=== PATIENT | male | born 1955 | race Caucasian/White ===

== ENCOUNTER 2016-06-23 16:10 | Inpatient (IN) | payer MEDICAID ==
[~2016-06-23] VITALS: Ht 175.3 cm; Wt 98.8 kg
[2016-06-23 17:23] LABS: Basophils # (auto) 0 uL; Basophils % (auto) 0.4 % (0.0-2.0); Eosinophils # (auto) 0.1 uL; Eosinophils % (auto) 0.7 % (0.0-7.0); Hematocrit 44.2 % (41.0-53.0); Hemoglobin 15.2 g/dL (13.5-17.5); Lymphocytes % (auto) 18.6 % (10.0-50.0); Mean Corpuscular Hemoglobin 31.9 pg (28.0-32.0); Mean Corpuscular Hgb Conc. 34.3 g/dL (32.0-36.0); Mean Corpuscular Volume 92.9 fL (80.0-100.0); Mean Platelet Volume 9.4 fL (7.4-10.4); Monocytes # (auto) 0.9 uL; Monocytes % (auto) 8.3 % (0.0-12.0); Neutrophils # (auto) 7.8 uL; Platelet Count (auto) 178 10^3/uL (140-450); Red Cell Distribution Width 13.2 % (11.6-16.0); White Blood Cell 10.8 10^3/uL (4.4-10.8)
[2016-06-23 17:26] LABS: Albumin 4.3 g/dL (3.4-5.0); Alkaline Phosphatase 133 U/L (45-117); Anion Gap 12 (5-15); Aspartate Aminotransferase 18 U/L (15-37); BUN/Creatinine Ratio 11.8; Bilirubin, Total 0.9 mg/dL (0.2-1.0); Blood Urea Nitrogen 12 mg/dL (7-18); Calcium 8.9 mg/dL (8.5-10.1); Carbon Dioxide 23 mmol/L (21-32); Chloride 105 mmol/L (98-107); GFR African American 95 mL/min; GFR Non-African American 79 mL/min; Glucose 303 mg/dL (74-106); Potassium 3.8 mmol/L (3.5-5.1); Sodium 140 mmol/L (136-145); Total Protein 8.4 g/dL (6.4-8.2)
[2016-06-23] MEDS ORDERED: PANTOPRAZOLE SODIUM 40 MG/10 ML VIAL IV STA (19:34)
[2016-06-23] MEDS ORDERED: SODIUM CHLORIDE 0.9% 1,000 ML IVB ONE (19:34)
[2016-06-23] MEDS ORDERED: HYDROmorphone HCL 2 MG/ML VL IV ONE (19:45)
[2016-06-23] MEDS ORDERED: ONDANSETRON HCL 4 MG/2 ML VIAL IV ONE (19:45)
[2016-06-23 19:59] LABS: Magnesium 2.2 mg/dL (1.6-2.6)
[2016-06-23 21:57] LABS: Urine Bilirubin Negative (Negative); Urine Blood 1+ /uL (Negative); Urine Color Yellow (Yellow); Urine Glucose 4+ mg/dL (Normal); Urine Ketone 1+ (Negative); Urine Mucus FEW (None Seen); Urine Nitrite Negative (Negative); Urine RBC 2 /hpf (0 - 3); Urine Urobilinogen Normal (Negative); Urine pH 5.5 (5.0-8.0)
[2016-06-23] MEDS ORDERED: SODIUM CHLORIDE 0.9% 1,000 ML IV SCH (22:35)
[2016-06-23] MEDS ORDERED: TEMAZEPAM 15 MG CAP PO PRN (22:45)
[2016-06-23] MEDS ORDERED: ONDANSETRON HCL 4 MG/2 ML VIAL IV PRN (22:45)
[2016-06-23] MEDS ORDERED: ACETAMINOPHEN 325 MG TAB PO PRN (22:45)
[2016-06-23] MEDS ORDERED: HYDROcodone-ACET 5/325MG TAB PO PRN (22:45)
[2016-06-23] MEDS ORDERED: cefTRIAXone 1GM/50ML D5W 50 ML IV ONE (22:45)
[2016-06-23 23:21] LABS: Calcium 8.3 mg/dL (8.5-10.1); Potassium 3.8 mmol/L (3.5-5.1)
[2016-06-23 23:24] LABS: BUN/Creatinine Ratio 13.7
[2016-06-23] MEDS: KETOROLAC TROMETH 30 MG/ML 1ML VIAL IV PRN (23:41)
[2016-06-24] VITALS (7 sets, daily range): BP systolic 130–148; BP diastolic 77–87
[2016-06-24] MEDS: KETOROLAC TROMETH 30 MG/ML 1ML VIAL IV PRN ×3 (06:28→20:14)
[2016-06-24 07:14] LABS: Basophils # (auto) 0 uL; Basophils % (auto) 0.4 % (0.0-2.0); Eosinophils # (auto) 0.1 uL; Eosinophils % (auto) 1.1 % (0.0-7.0); Hematocrit 38.7 % (41.0-53.0); Hemoglobin 13.2 g/dL (13.5-17.5); Lymphocytes # (auto) 1.9 uL; Lymphocytes % (auto) 19.8 % (10.0-50.0); Mean Corpuscular Hemoglobin 31.3 pg (28.0-32.0); Mean Corpuscular Hgb Conc. 34.1 g/dL (32.0-36.0); Mean Corpuscular Volume 91.8 fL (80.0-100.0); Mean Platelet Volume 9.6 fL (7.4-10.4); Monocytes # (auto) 1.1 uL; Monocytes % (auto) 11.4 % (0.0-12.0); Neutrophils # (auto) 6.4 uL; Neutrophils % (auto) 67.3 % (37.0-80.0); Platelet Count (auto) 136 10^3/uL (140-450); Red Cell Distribution Width 13.2 % (11.6-16.0); White Blood Cell 9.5 10^3/uL (4.4-10.8)
[2016-06-24] MEDS ORDERED: cefTRIAXone 1GM/50ML D5W 50 ML IV SCH (09:00)
[2016-06-24] MEDS ORDERED: PANTOPRAZOLE SODIUM 40 MG/10 ML VIAL IV SCH (10:00)
[2016-06-24] MEDS ORDERED: ENOXAPARIN SOD 40 MG/0.4 ML SYRINGE SC SCH (10:00)
[2016-06-24] MEDS: SODIUM CHLORIDE 0.9% 1,000 ML IV SCH ×2 (14:19→23:48)
[2016-06-24] MEDS ORDERED: OMEP20CA5 PO (14:28)
[2016-06-24] MEDS ORDERED: IBUP600T27 PO (14:28)
[2016-06-25] MEDS: KETOROLAC TROMETH 30 MG/ML 1ML VIAL IV PRN (04:39)
[2016-06-25 04:45] VITALS: BP 153/87
[2016-06-25 07:18] LABS: Albumin 3.1 g/dL (3.4-5.0); BUN/Creatinine Ratio 17.5; Bilirubin, Total 0.8 mg/dL (0.2-1.0); Calcium 8.3 mg/dL (8.5-10.1); Potassium 3.4 mmol/L (3.5-5.1); Total Protein 6.8 g/dL (6.4-8.2)
[2016-06-25 08:28] VITALS: BP 142/82
[2016-06-25 09:00] VITALS: BP 142/82
[2016-06-25 09:20] VITALS: BP 142/82
== END 2016-06-25 10:01 | disposition home or self-care (01) | DRG 282 ==
LOC: ER 16:13 → OVERFLOW 16:14 → CENTRAL 23:27
PROVIDERS: ADMIT Nurse Practitioner; ATTEND Hospitalist
DX: K85.20 Alcohol induced acute pancreatitis without necrosis or infection (principal); K73.9 Chronic hepatitis, unspecified; R73.9 Hyperglycemia, unspecified; F10.20 Alcohol dependence, uncomplicated; F15.90 Other stimulant use, unspecified, uncomplicated; F17.210 Nicotine dependence, cigarettes, uncomplicated; Y90.0 Blood alcohol level of less than 20 mg/100 ml; Z90.49 Acquired absence of other specified parts of digestive tract; Z80.8 Family history of malignant neoplasm of other organs or systems
CPT/HCPCS: 36415; 71020; 74176; 80048; 80053; 80061; 80307; 81001; 82150; 83036; 83690; 83735; 84484; 85025; 93005; 94761; 96365; 96375; C9113; J0696; J1885; J2405

== ENCOUNTER 2019-03-16 11:57 | Inpatient (IN) | payer MEDICAID, MEDICARE, OTHER ==
[~2019-03-16] VITALS: Ht 180.3 cm; Wt 85.7 kg
[~2019-03-16 11:57] MED LIST: IBUP600T27 PO; OMEP20CA74 PO
[2019-03-16] MEDS ORDERED: IPRATROPIUM BROM 0.5 MG/2.5ML INH SOL HHN ONE (12:15)
[2019-03-16] MEDS ORDERED: methylPREDNISolone SOD SUCC 125 MG/2 ML VL IV ONE (12:15)
[2019-03-16] MEDS ORDERED: ALBUTEROL SULF 2.5 MG/0.5ML(0.5%) NEB SOLN HHN ONE (12:15)
[2019-03-16 13:38] LABS: Basophils # (auto) 0 uL; Basophils % (auto) 0.3 % (0.0-2.0); Eosinophils # (auto) 0 uL; Eosinophils % (auto) 0.6 % (0.0-7.0); Hematocrit 38.8 % (41.0-53.0); Hemoglobin 13.5 g/dL (13.5-17.5); Lymphocytes # (auto) 2.3 uL; Lymphocytes % (auto) 30.9 % (10.0-50.0); Mean Corpuscular Hemoglobin 31.6 pg (28.0-32.0); Mean Corpuscular Hgb Conc. 34.8 g/dL (32.0-36.0); Mean Corpuscular Volume 90.6 fL (80.0-100.0); Monocytes # (auto) 0.9 uL; Monocytes % (auto) 11.8 % (0.0-12.0); Neutrophils # (auto) 4.3 uL; Neutrophils % (auto) 56.4 % (37.0-80.0); Nucleated Red Blood Cells % 0.1 %; Platelet Count (auto) 159 10^3/uL (140-450); Red Blood Cells 4.28 10^6/uL (4.5-5.90); Red Cell Distribution Width 12.9 % (11.8-14.3); White Blood Cell 7.5 10^3/uL (4.4-10.8)
[2019-03-16 13:52] LABS: Lactic Acid w/Reflex 3.8 mmol/L (0.4-2.0)
[2019-03-16 13:55] LABS: Albumin 3.5 g/dL (3.4-5.0); Anion Gap 10 (5-15); Blood Urea Nitrogen 12 mg/dL (7-18); Carbon Dioxide 24 mmol/L (21-32); Chloride 98 mmol/L (98-107); Glucose 372 mg/dL (74-106); Magnesium 2.2 mg/dL (1.6-2.6); Potassium 3.2 mmol/L (3.5-5.1); Sodium 132 mmol/L (136-145)
[2019-03-16 14:01] LABS: Alanine Aminotransferase 41 U/L (16-61); Alkaline Phosphatase 106 U/L (45-117); Aspartate Aminotransferase 30 U/L (15-37); BUN/Creatinine Ratio 12.1; Bilirubin, Total 0.8 mg/dL (0.2-1.0); GFR African American 98 mL/min; GFR Non-African American 81 mL/min; Total Protein 7.6 g/dL (6.4-8.2)
[2019-03-16] MEDS ORDERED: MORPHINE SULF INJ 2 MG/ML SYRINGE 1ML IV PRN (15:15)
[2019-03-16] MEDS ORDERED: PROMETHAZINE HCL 25 MG/ML 1ML IV PRN (15:15)
[2019-03-16] MEDS ORDERED: TEMAZEPAM 15 MG CAP PO PRN (15:15)
[2019-03-16] MEDS ORDERED: ALBUTEROL SULF 2.5 MG/0.5ML(0.5%) NEB SOLN NEB PRN (15:15)
[2019-03-16] MEDS ORDERED: ACETAMINOPHEN 500 MG TAB PO PRN (15:15)
[2019-03-16] MEDS ORDERED: LACTULOSE 20Gm/30ML SOLN PO PRN ×2 (15:15)
[2019-03-16] MEDS ORDERED: traMADol HCL 50 MG TAB PO PRN (15:15)
[2019-03-16] MEDS ORDERED: DEXTROSE (50%) 50ML SYRG IV PRN (15:15)
[2019-03-16] MEDS ORDERED: NITROGLYCERIN 0.4 MG SL TAB SL PRN (15:15)
[2019-03-16] MEDS ORDERED: OSELTAMIVIR 75 MG CAP PO ONE (15:15)
[2019-03-16] MEDS: ACCU-CHEK COMFORT CURVE STRIP VI SCH ×2 (16:00→20:00)
[2019-03-16 16:18] LABS: CRP High Sensitivity 2.49 mg/dL (< 0.3)
[2019-03-16 17:00] VITALS: BP 123/79
--- NOTE | 2019-03-16 17:00 | NUR ---
Telemetry admit from ER KATIE HAN admitted to Telemetry unit NO SBAR received. Patient oriented to FARHAT PATELRN primary RN, unit, room, bed, and unit policies regarding patient care and visiting hours. Patient now on continuous telemetry monitoring, tele box #[id number] and telemetry reading on arrival to unit is NSR at 91bpm. Patient placed on bedside oxygen @ 2l n/c, weighed by bedscale and encouraged to call if they need something. Bed in lowest/locked position, bed rails up x2, call light within reach. All questions and concerns addressed, patient verbalized understanding.
--- NOTE | 2019-03-16 17:10 | NUR ---
EMAR PER PATIENT EMAR 1500 AND 1600 MEDS NOT ADMINISTERED FROM ER. PATIENT NOT ON UNIT UNTIL APPROXIMATELY 1700. WILL MEDICATE PATIENT PER MD ORDERS NOW. WILL CONTINUE TO MONITOR Q1H AND PRN.
[2019-03-16] MEDS: DOXYCYCLINE 100MG/250ML 250 ML IV SCH (18:17)
--- NOTE | 2019-03-16 18:20 | NUR ---
ACCU CHECK BLOOD SUGAR 431 RECHECK BLOOD SUGAR 435 WILL MEDICATE PER ORDER AND NOTFIY MD
--- NOTE | 2019-03-16 18:30 | NUR ---
PAGED HOSPITALIST PAGED HOSPITALIST RE: PATIENT BLOOD SUGARS [phone]. AWAITING RETURN PHONE CALL
[2019-03-16] MEDS: SOD CHL 0.9%/ KCL 40MEQ 1,000 ML IV SCH ×2 (18:31→23:35)
[2019-03-16] MEDS: InsuLIN REG 1unit/0.01ml Soln (100units/ml) SC SCH ×2 (18:42→20:42)
[2019-03-16] MEDS: IPRATROPIUM BROM 0.5 MG/2.5ML INH SOL NEB SCH (18:43)
[2019-03-16] MEDS: ALBUTEROL SULF 2.5 MG/0.5ML(0.5%) NEB SOLN NEB SCH (18:43)
--- NOTE | 2019-03-16 18:58 | NUR ---
INFLUENZA INFLUENZA SWAB SENT PER GA ORDER
--- NOTE | 2019-03-16 19:30 | NUR ---
Opening Shift Note Assumed care of patient, awake and alert. No S/S of distress/SOB or pain. Awaiting on return phone call from MD per day RN for high blood sugar. Will follow up. IV to DIONTE patent and infusing. Skin clear. Instructed on POC and to call for assist PRN, will continue to monitor for changes Q1hr and PRN.
--- NOTE | 2019-03-16 20:30 | NUR ---
Blood sugar was 568. Insulin given per orders. Paged Dr. Mcnair. New orders carried out for labs and to update with results to follow. Patient is asymptomatic at this time. No distress noted.
--- NOTE | 2019-03-16 21:00 | NUR ---
IV to DIONTE was accidentally pulled out per patient. Patient is a very hard stick, will start new IV as soon as able. No bleeding at IV site noted.
[2019-03-16 21:45] LABS: Albumin 3.3 g/dL (3.4-5.0); BUN/Creatinine Ratio 15.7; Calcium 8.8 mg/dL (8.5-10.1); Potassium 3.7 mmol/L (3.5-5.1)
[2019-03-16 21:49] LABS: Bilirubin, Total 0.7 mg/dL (0.2-1.0); Total Protein 7.5 g/dL (6.4-8.2)
[2019-03-16 22:00] VITALS: BP 108/71
[2019-03-16] MEDS ORDERED: OSELTAMIVIR 75 MG CAP PO SCH (22:00)
[2019-03-16] MEDS ORDERED: InsuLIN REG 1unit/0.01ml Soln (100units/ml) IV ONE (22:30)
--- NOTE | 2019-03-16 23:00 | NUR ---
Spoke with Dr. Mcnair. regarding blood sugar now at 450 per lab draw. One time order of 15 units regular insulin carried out per orders. Accu check q4 hours. Anion gap @ 10. Patient also received solu medrol as well in ER. Continuing to monitor
[2019-03-16] MEDS: ATORVASTATIN 20 MG TAB PO SCH (23:01)
[2019-03-16] MEDS: METOPROLOL TARTRATE 25 MG TAB PO SCH (23:02)
--- NOTE | 2019-03-16 23:22 | NUR ---
New IV started to center of abdomen, 24 gauge. Tolerated well.
[2019-03-17] MEDS: IPRATROPIUM BROM 0.5 MG/2.5ML INH SOL NEB SCH ×4 (00:35→18:49)
[2019-03-17] MEDS: ALBUTEROL SULF 2.5 MG/0.5ML(0.5%) NEB SOLN NEB SCH ×4 (00:36→18:49)
[2019-03-17] MEDS: InsuLIN REG 1unit/0.01ml Soln (100units/ml) SC SCH ×5 (04:00→17:39)
[2019-03-17] MEDS: DOXYCYCLINE 100MG/250ML 250 ML IV SCH ×2 (04:00→16:38)
[2019-03-17] MEDS: ACCU-CHEK COMFORT CURVE STRIP VI SCH ×6 (04:17→22:34)
--- NOTE | 2019-03-17 04:30 | NUR ---
Blood sugar was 214. Held insulin due to patient feeling sweaty and clammy. Also felt like he needed a snack. 30 units of insulin given by me throughout night and will continue to monitor. snack given as well.
[2019-03-17 05:00] VITALS: BP 130/77
[2019-03-17 06:10] LABS: Potassium 3.9 mmol/L (3.5-5.1)
[2019-03-17 06:24] LABS: Albumin 3.3 g/dL (3.4-5.0); BUN/Creatinine Ratio 21.3; Bilirubin, Total 0.8 mg/dL (0.2-1.0); Calcium 8.9 mg/dL (8.5-10.1); Total Protein 7.1 g/dL (6.4-8.2)
[2019-03-17 08:00] VITALS: BP 130/75
[2019-03-17 09:02] VITALS: BP 136/77
[2019-03-17] MEDS: ASPirin 81 mg TAB PO SCH (10:47)
[2019-03-17] MEDS: METOPROLOL TARTRATE 25 MG TAB PO SCH ×2 (10:47→22:37)
[2019-03-17] MEDS: ENOXAPARIN SOD 40 MG/0.4 ML SYRINGE SC SCH (10:47)
[2019-03-17] MEDS: NITROGLYCERIN 0.2MG/HR TOPICAL PATCH TD SCH (10:48)
[2019-03-17 13:21] VITALS: BP 128/76
[2019-03-17 16:58] VITALS: BP 126/76
--- NOTE | 2019-03-17 19:40 | NUR ---
received pt from day rn poc reviewed
--- NOTE | 2019-03-17 20:00 | NUR ---
pt resting with eyes closed resp even and unlabored, denies pain or discomfort, call light within reach
[2019-03-17 21:00] VITALS: BP 113/73
[2019-03-17] MEDS ORDERED: InsuLIN REG 1unit/0.01ml Soln (100units/ml) SC SCH (22:00)
[2019-03-17] MEDS: ATORVASTATIN 20 MG TAB PO SCH (22:37)
--- NOTE | 2019-03-18 | NUR ---
awoke denies discomfort, all needs met
[2019-03-18] MEDS: ALBUTEROL SULF 2.5 MG/0.5ML(0.5%) NEB SOLN NEB SCH ×4 (00:14→12:07)
[2019-03-18] MEDS: IPRATROPIUM BROM 0.5 MG/2.5ML INH SOL NEB SCH ×4 (00:14→12:07)
--- NOTE | 2019-03-18 02:00 | NUR ---
resting with eyes closed call light within reach. resp even and unlabored
[2019-03-18 04:30] VITALS: BP 129/74
[2019-03-18] MEDS: DOXYCYCLINE 100MG/250ML 250 ML IV SCH (05:11)
[2019-03-18] MEDS: InsuLIN REG 1unit/0.01ml Soln (100units/ml) SC SCH ×2 (06:20→12:11)
[2019-03-18] MEDS: ACCU-CHEK COMFORT CURVE STRIP VI SCH ×2 (06:20→11:30)
--- NOTE | 2019-03-18 06:45 | NUR ---
awoke am care given denies pain or discomfort, will continue to monitor
--- NOTE | 2019-03-18 07:05 | NUR ---
report given to am nurse poc reviewed
[2019-03-18 08:00] VITALS: BP 113/73
[2019-03-18 09:11] VITALS: BP 135/75
[2019-03-18] MEDS: ASPirin 81 mg TAB PO SCH (11:44)
[2019-03-18] MEDS: METOPROLOL TARTRATE 25 MG TAB PO SCH (11:45)
[2019-03-18] MEDS: ENOXAPARIN SOD 40 MG/0.4 ML SYRINGE SC SCH (11:46)
[2019-03-18] MEDS: NITROGLYCERIN 0.2MG/HR TOPICAL PATCH TD SCH (11:46)
[2019-03-18 13:50] VITALS: BP 135/75
== END 2019-03-18 17:30 | disposition home or self-care (01) | DRG 202 ==
LOC: ER 11:57 → TELE 11:58 → TELE-WESTW 16:52
PROVIDERS: ADMIT Internal Medicine; ATTEND Internal Medicine
DX: J20.9 Acute bronchitis, unspecified (principal); J44.1 Chronic obstructive pulmonary disease with (acute) exacerbation; J44.0 Chronic obstructive pulmonary disease with (acute) lower respiratory infection; E11.65 Type 2 diabetes mellitus with hyperglycemia; E78.5 Hyperlipidemia, unspecified; F17.210 Nicotine dependence, cigarettes, uncomplicated; B19.20 Unspecified viral hepatitis C without hepatic coma; I10 Essential (primary) hypertension; Z80.3 Family history of malignant neoplasm of breast; Z82.0 Family history of epilepsy and other diseases of the nervous system; Z89.512 Acquired absence of left leg below knee; Z90.49 Acquired absence of other specified parts of digestive tract; Z79.899 Other long term (current) drug therapy
CPT/HCPCS: 36415; 71046; 80053; 80061; 82550; 82962; 83036; 83605; 83735; 83880; 84484; 85025; 85379; 85652; 86141; 87040; 87804; 93306; 94640; 96374; 99291; G0378; J1815; J3490

== ENCOUNTER 2019-05-04 19:23 | Inpatient (IN) | payer MEDICARE ==
[~2019-05-04] VITALS: Ht 170.2 cm; Wt 88.9 kg
[2019-05-04 20:29] LABS: INR 0.99 (0.9-1.15); Partial Thromboplastin Time 20.2 sec (23.64-32.05)
[2019-05-04 20:39] LABS: Albumin 4.4 g/dL (3.4-5.0); Calcium 9.3 mg/dL (8.5-10.1)
[2019-05-04 20:41] LABS: Urine Bacteria NONE SEEN /hpf (None Seen); Urine Blood Negative /uL (Negative); Urine Hyaline Cast FEW /lpf (0 - 2); Urine Mucus FEW (None Seen); Urine WBC 1 /hpf (0 - 3)
[2019-05-04 20:43] LABS: BUN/Creatinine Ratio 11.8; Bilirubin, Total 0.7 mg/dL (0.2-1.0); Total Protein 8.1 g/dL (6.4-8.2)
[2019-05-04 20:49] LABS: Basophils # (auto) 0.1 10 ^3/uL (0-0.2); Basophils % (auto) 0.7 % (0.0-2.0); Eosinophils # (auto) 0.1 10 ^3/uL (0-0.8); Eosinophils % (auto) 1.5 % (0.0-7.0); Hematocrit 45.4 % (41.0-53.0); Hemoglobin 15.6 g/dL (13.5-17.5); Lymphocytes % (auto) 36.5 % (10.0-50.0); Mean Corpuscular Hemoglobin 31.7 pg (28.0-32.0); Mean Corpuscular Hgb Conc. 34.4 g/dL (32.0-36.0); Mean Corpuscular Volume 92.2 fL (80.0-100.0); Monocytes # (auto) 0.9 10 ^3/uL (0-1.3); Monocytes % (auto) 10.6 % (0.0-12.0); Neutrophils # (auto) 4.2 10 ^3/uL (1.6-8.6); Neutrophils % (auto) 50.7 % (37.0-80.0); Nucleated Red Blood Cells % 0.5 %; Platelet Count (auto) 158 10^3/uL (140-450); Red Blood Cells 4.93 10^6/uL (4.5-5.90); Red Cell Distribution Width 13.8 % (11.8-14.3); White Blood Cell 8.3 10^3/uL (4.4-10.8)
[2019-05-05] VITALS (7 sets, daily range): BP systolic 115–139; BP diastolic 46–88
[2019-05-05] MEDS ORDERED: ONDANSETRON HCL 4 MG/2 ML VIAL IV PRN (01:00)
[2019-05-05] MEDS ORDERED: DOCUSATE SOD 100 MG CAP PO PRN (01:00)
[2019-05-05] MEDS ORDERED: MORPHINE SULFATE 4 MG/ML SYR/VIAL IV PRN (01:00)
[2019-05-05] MEDS ORDERED: ACETAMINOPHEN 325 MG TAB PO PRN (01:00)
[2019-05-05] MEDS ORDERED: DEXTROSE (50%) 50ML SYRG IV PRN (01:00)
[2019-05-05] MEDS ORDERED: IPRATROPIUM BROM 0.5 MG/2.5ML INH SOL NEB PRN (01:00)
[2019-05-05] MEDS: HYDROcodone-ACET 5/325MG TAB PO PRN ×2 (03:15→10:35)
[2019-05-05] MEDS: ACCU-CHEK COMFORT CURVE STRIP VI SCH ×5 (03:39→20:49)
[2019-05-05] MEDS: SODIUM CHLORIDE 0.9% 1,000 ML IV SCH ×3 (03:40→20:49)
[2019-05-05] MEDS: InsuLIN REG 1unit/0.01ml Soln (100units/ml) SC SCH ×5 (03:48→20:48)
[2019-05-05] MEDS: methylPREDNISolone SOD SUCC 125 MG/2 ML VL IV SCH (10:25)
[2019-05-05] MEDS: METOPROLOL TARTRATE 25 MG TAB PO SCH ×2 (10:26→10:34)
[2019-05-05] MEDS: LOSARTAN POTASSIUM 50 MG TAB PO SCH ×2 (10:26→10:34)
[2019-05-05] MEDS: PANTOPRAZOLE 40 MG TAB PO SCH ×2 (10:26→20:50)
[2019-05-05] MEDS: ATORVASTATIN 20 MG TAB PO SCH (10:27)
[2019-05-05 12:32] LABS: Basophils # (auto) 0 10 ^3/uL (0-0.2); Basophils % (auto) 0.6 % (0.0-2.0); Eosinophils # (auto) 0.1 10 ^3/uL (0-0.8); Hematocrit 38.2 % (41.0-53.0); Hemoglobin 13.5 g/dL (13.5-17.5); Lymphocytes # (auto) 1.5 10 ^3/uL (0.4-5.4); Lymphocytes % (auto) 31.7 % (10.0-50.0); Mean Corpuscular Hemoglobin 31.6 pg (28.0-32.0); Mean Corpuscular Hgb Conc. 35.2 g/dL (32.0-36.0); Mean Corpuscular Volume 89.6 fL (80.0-100.0); Monocytes # (auto) 0.4 10 ^3/uL (0-1.3); Monocytes % (auto) 7.3 % (0.0-12.0); Neutrophils # (auto) 2.8 10 ^3/uL (1.6-8.6); Neutrophils % (auto) 58.4 % (37.0-80.0); Nucleated Red Blood Cells % 0.2 %; Platelet Count (auto) 132 10^3/uL (140-450); Red Blood Cells 4.26 10^6/uL (4.5-5.90); Red Cell Distribution Width 13.7 % (11.8-14.3); White Blood Cell 4.9 10^3/uL (4.4-10.8)
[2019-05-05 12:48] LABS: Calcium 8.5 mg/dL (8.5-10.1); Potassium 3.3 mmol/L (3.5-5.1)
[2019-05-06] MEDS: InsuLIN REG 1unit/0.01ml Soln (100units/ml) SC SCH ×7 (00:01→23:48)
[2019-05-06] MEDS: ACCU-CHEK COMFORT CURVE STRIP VI SCH ×7 (04:44→23:48)
[2019-05-06 05:37] VITALS: BP 115/68
[2019-05-06] MEDS: SODIUM CHLORIDE 0.9% 1,000 ML IV SCH ×2 (05:41→16:29)
[2019-05-06 08:00] VITALS: BP 124/76
[2019-05-06 09:00] VITALS: BP 121/76
[2019-05-06] MEDS: METOPROLOL TARTRATE 25 MG TAB PO SCH ×2 (10:00→21:06)
[2019-05-06] MEDS: methylPREDNISolone SOD SUCC 125 MG/2 ML VL IV SCH (10:16)
[2019-05-06] MEDS: PANTOPRAZOLE 40 MG TAB PO SCH ×2 (10:16→21:06)
[2019-05-06] MEDS: ATORVASTATIN 20 MG TAB PO SCH (10:16)
[2019-05-06] MEDS ORDERED: GOLYTELY 4L KIT PO ONE (12:00)
[2019-05-06 13:00] VITALS: BP 133/74
[2019-05-06 17:00] VITALS: BP 114/68
[2019-05-06 22:00] VITALS: BP 134/78
[2019-05-07] MEDS: SODIUM CHLORIDE 0.9% 1,000 ML IV SCH ×3 (02:08→22:49)
[2019-05-07] MEDS: InsuLIN REG 1unit/0.01ml Soln (100units/ml) SC SCH ×5 (04:00→20:00)
[2019-05-07] MEDS: ACCU-CHEK COMFORT CURVE STRIP VI SCH ×5 (04:10→20:00)
[2019-05-07 05:00] VITALS: BP 128/72
[2019-05-07 08:00] VITALS: BP 136/70
[2019-05-07 08:28] VITALS: BP 136/70
[2019-05-07] MEDS: methylPREDNISolone SOD SUCC 125 MG/2 ML VL IV SCH (10:00)
[2019-05-07] MEDS: LOSARTAN POTASSIUM 50 MG TAB PO SCH (10:00)
[2019-05-07] MEDS: METOPROLOL TARTRATE 25 MG TAB PO SCH ×2 (10:00→20:05)
[2019-05-07] MEDS: ATORVASTATIN 20 MG TAB PO SCH (10:00)
[2019-05-07] MEDS ORDERED: fentaNYL CITRATE 100 MCG/2 ML VL ONE (12:09)
[2019-05-07] MEDS ORDERED: PROPOFOL 10 MG/ML 20 ML IV ONE (12:09)
[2019-05-07] MEDS ORDERED: MIDAZOLAM HCL 1MG/1ML-2 ML VIAL ONE (12:10)
[2019-05-07] MEDS ORDERED: ONDANSETRON HCL 4 MG/2 ML VIAL IV PRN (12:45)
[2019-05-07] MEDS ORDERED: hydrALAZINE HCL 20 MG/ML VL IV PRN (12:45)
[2019-05-07] MEDS ORDERED: ePHEDrine SULFATE 50 MG/ML AMP IV PRN (12:45)
[2019-05-07] MEDS ORDERED: fentaNYL CITRATE 100 MCG/2 ML VL IV PRN (12:45)
[2019-05-07 17:01] VITALS: BP 133/70
[2019-05-07] MEDS: levoFLOXacin 500 MG TAB PO SCH (17:32)
[2019-05-07 22:00] VITALS: BP 126/70
[2019-05-08] MEDS: ACCU-CHEK COMFORT CURVE STRIP VI SCH ×4 (00:44→13:16)
[2019-05-08] MEDS: SODIUM CHLORIDE 0.9% 1,000 ML IV SCH (01:34)
[2019-05-08 02:00] VITALS: BP 124/47
[2019-05-08] MEDS: InsuLIN REG 1unit/0.01ml Soln (100units/ml) SC SCH ×4 (04:00→13:16)
[2019-05-08 05:00] VITALS: BP 150/80
[2019-05-08 08:00] VITALS: BP 137/74
[2019-05-08] MEDS: methylPREDNISolone SOD SUCC 125 MG/2 ML VL IV SCH (09:42)
[2019-05-08] MEDS: levoFLOXacin 500 MG TAB PO SCH (09:42)
[2019-05-08] MEDS: ATORVASTATIN 20 MG TAB PO SCH (09:42)
[2019-05-08] MEDS: LOSARTAN POTASSIUM 50 MG TAB PO SCH (09:44)
[2019-05-08] MEDS: METOPROLOL TARTRATE 25 MG TAB PO SCH (09:44)
[2019-05-08 12:00] VITALS: BP 177/81
[2019-05-08 15:18] VITALS: BP 144/77
== END 2019-05-08 15:52 | disposition home or self-care (01) | DRG 394 ==
LOC: ER 19:23 → OVERFLOW 19:24 → WEST WING 05-05 02:15
PROVIDERS: ADMIT Hospitalist; ATTEND Family Medicine
PROC: 0DB68ZX Excision of Stomach, Via Natural or Artificial Opening Endoscopic, Diagnostic (ICD-10-PCS; principal; 2019-05-07 12:14)
PROC: 0DBN8ZZ Excision of Sigmoid Colon, Via Natural or Artificial Opening Endoscopic (ICD-10-PCS; 2019-05-07 12:14)
DX: K55.9 Vascular disorder of intestine, unspecified (principal); K57.92 Diverticulitis of intestine, part unspecified, without perforation or abscess without bleeding; J44.1 Chronic obstructive pulmonary disease with (acute) exacerbation; D49.0 Neoplasm of unspecified behavior of digestive system; B19.20 Unspecified viral hepatitis C without hepatic coma; I10 Essential (primary) hypertension; E78.5 Hyperlipidemia, unspecified; E78.00 Pure hypercholesterolemia, unspecified; E11.9 Type 2 diabetes mellitus without complications; F17.210 Nicotine dependence, cigarettes, uncomplicated; K63.5 Polyp of colon; Z89.519 Acquired absence of unspecified leg below knee; Z90.49 Acquired absence of other specified parts of digestive tract
CPT/HCPCS: 36415; 43239; 45384; 74176; 80048; 80053; 81001; 82962; 83036; 83690; 85025; 85610; 85730; 93005; 94640; G0378; J1815; J2250; J2704

== ENCOUNTER 2021-03-27 10:03 | Emergency (ER) | payer MEDICARE, OTHER ==
[~2021-03-27] VITALS: Ht 177.8 cm; Wt 86.2 kg
[2021-03-27 11:16] LABS: Basophils # (auto) 0 10 ^3/uL (0-0.2); Basophils % (auto) 0.5 % (0.0-2.0); Eosinophils # (auto) 0.1 10 ^3/uL (0-0.8); Eosinophils % (auto) 1.6 % (0.0-7.0); Hematocrit 41.6 % (41.0-53.0); Hemoglobin 14.6 g/dL (13.5-17.5); Lymphocytes # (auto) 2.1 10 ^3/uL (0.4-5.4); Lymphocytes % (auto) 36.1 % (10.0-50.0); Mean Corpuscular Hgb Conc. 35.1 g/dL (32.0-36.0); Mean Corpuscular Volume 91.1 fL (80.0-100.0); Monocytes # (auto) 0.7 10 ^3/uL (0-1.3); Monocytes % (auto) 11.7 % (0.0-12.0); Neutrophils % (auto) 50.1 % (37.0-80.0); Nucleated Red Blood Cells % 0.2 %; Red Blood Cells 4.57 10^6/uL (4.5-5.90); Red Cell Distribution Width 12.9 % (11.8-14.3); White Blood Cell 5.9 10^3/uL (4.4-10.8)
[2021-03-27 11:29] LABS: Albumin 4.1 g/dL (3.4-5.0); Calcium 9.3 mg/dL (8.5-10.1); Potassium 3.2 mmol/L (3.5-5.1)
[2021-03-27 11:37] LABS: BUN/Creatinine Ratio 17.4; Bilirubin, Total 0.6 mg/dL (0.2-1.0); Total Protein 7.5 g/dL (6.4-8.2)
[2021-03-27 11:47] LABS: Urine Bacteria NONE SEEN /hpf (None Seen); Urine Blood Negative /uL (Negative); Urine Specific Gravity 1.032 (1.001-1.035); Urine WBC 2 /hpf (0 - 3)
[2021-03-27] MEDS ORDERED: SODIUM CHLORIDE 0.9% 1,000 ML IV ONE ×2 (12:15)
[2021-03-27] MEDS ORDERED: InsuLIN REG 1unit/0.01ml Soln (100units/ml) IV ONE (12:15)
[2021-03-27] MEDS ORDERED: TAMSULOSIN HYDROCHLORIDE 0.4 MG CAP PO ONE (12:15)
[2021-03-27] MEDS ORDERED: KETOROLAC TROMETH 30 MG/ML 1ML VIAL IV ONE (12:15)
[2021-03-27] MEDS ORDERED: POTASSIUM EFFERVESENT TAB 25 MEQ PO ONE (14:30)
[2021-03-27 16:06] VITALS: BP 138/76
== END 2021-03-27 16:19 | disposition home or self-care (01) ==
LOC: ER 10:03
DX: N20.0 Calculus of kidney (principal); N13.30 Unspecified hydronephrosis; E11.65 Type 2 diabetes mellitus with hyperglycemia; J44.9 Chronic obstructive pulmonary disease, unspecified; E78.5 Hyperlipidemia, unspecified; I10 Essential (primary) hypertension; F17.210 Nicotine dependence, cigarettes, uncomplicated; Z90.49 Acquired absence of other specified parts of digestive tract
CPT/HCPCS: 36415; 74176; 80053; 81001; 83690; 84484; 85025; 93005; 96361; 96374; 96375; 99284; J1815; J1885; J7030